=== PATIENT | female | born 1960 | race Caucasian/White ===

== ENCOUNTER 2019-09-06 19:28 | Emergency (ER) | payer OTHER, SELFPAY ==
[2019-09-06 19:52] VITALS: BP 158/84; PULSE 88; RESP 20; TEMP 36.8; O2SAT 96; BMI 19.0
--- NOTE | 2019-09-06 19:57 | HMH.EDUTC ---
[facility] – [place] Disposition Clinical Impression: COVID-19 virus test result unknown Disposition: Home, Self-Care Condition on Discharge: Good Instructions: Preventing the Spread of Coronavirus Discharge Instructions Additional Instructions: - Education on self-quarantine and self care provided (until negative exam) - Increase fluids, and encouraged symptomatic care - COVID test completed- results pending Referrals: PCP,No [Primary Care Provider] - Time of Disposition: 20:03 Medical Decision Making - [place] Inquiry Pt receiving controlled substance: No Vital Signs: 09/06/19 19:52 Temperature 98.3 F Temperature Source Oral Pulse Rate [Right Brachial] 88 Respiratory Rate 20 Blood Pressure [Right Arm] 158/84 H Blood Pressure Mean [Right Arm] 108 Blood Pressure Source [Right Arm] Automatic Cuff Blood Pressure Position [Right Arm] Sitting 02 Sat by Pulse Oximetry 96 Oxygen Delivery Method Room Air Orders (Tests/Meds): ORDERS Category Date Time Status SARS-CoV-2, [place] ([place]) Stat Lab 09/06/19 19:30 Ordered [facility] [place] HPI - General Chief complaint: Urgent Treatment Center Stated complaint: COVID Testing Time Seen by Provider: 09/06/19 20:03 Mode of Arrival: Ambulatory Source of Information: Patient Limitations: No Limitations Description of Symptoms (Recalled from Triage Doc. by RN): PATIENT REQUESTING COVID TEST D/T A POSITIVE CASE AT HER WORKPLACE. DENIES ANY SYMPTOMS HEENT Symptoms (Recalled from RN notes): No Resp Symptoms (Recalled from RN notes): No Skin Symptoms (Recalled from RN notes): No MS Symptoms (Recalled from RN notes): No Functional Status (Recalled from RN notes): WNL - History of Present Illness Provider Complaint: 59 year old female presents to [facility] requesting COVID test today. 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 She is unsure if she had exposure. She is currently asymptomatic. - Related Data Allergies Allergy/AdvReac Type Severity Reaction Status Date / Time sulfamethoxazole Allergy Verified 09/06/19 19:55 [From Bactrim] trimethoprim [From Bactrim] Allergy Verified 09/06/19 19:55 - Worker's Comp Is this a Worker's Comp case?: No [facility] History - Hepatitis A Screen Drug use history?: No High risk sexual behaviors?: No History of sexually transmitted infection?: No Currently employed?: No Childcare worker?: No Do you have indoor plumbing?: Yes Do you have electricity?: Yes Attestation statement:: This patient has been screened for Hepatitis A risk factors. I have reviewed the patient's past medical history: Yes - Social History Alcohol Intake: never Occupational Status: other ROS Obtained: Yes Systems reviewed as appropriate & no additional complaints - Constitutional Constitutional: Reports system reviewed and no additional complaints, except as docu, Denies body ache, Denies chills, Denies fatigue, Denies malaise - Eyes Eyes: Reports system reviewed and no additional complaints, except as docu, Denies blurry vision, Denies change in vision - ENT Ears, Nose, Mouth, and Throat: Reports system reviewed and no additional complaints, except as docu, Denies abnormal hearing, Denies change in voice, Denies dizziness - Cardiovascular Cardiovascular: Reports system reviewed and no additional complaints, except as docu, Denies chest pain - Respiratory Respiratory: Yes system reviewed and no additional complaints, except as docu, No chest congestion, No cough, No dyspnea - Gastrointestinal Gastrointestingal: Reports: system reviewed and no additional complaints, except as docu. Denies: abdominal pain, diarrhea - Genitourinary Female Genitourinary: Reports system reviewed and no additional complaints, except as docu - Musculoskeletal Musculoskeletal: Reports system reviewed and no additional complaints, except as docu, Denies joint pain - Integumentary/Breasts Skin/Breast: Repo
[2019-09-06 20:18] VITALS: BP 158/84; PULSE 88; RESP 20; TEMP 36.8; O2SAT 96
[2019-09-08 09:06] LABS: Covid-19 Nasal PCR Sendout UK Not Detected
== END 2019-09-06 20:20 | disposition home or self-care (01) ==
PROVIDERS: Emergency Provider Nurse Practitioner Family
DX: Z20.828 Contact with and (suspected) exposure to other viral communicable diseases (principal); E78.5 Hyperlipidemia, unspecified; Z88.2 Allergy status to sulfonamides
CPT/HCPCS: 99201; U0003